=== PATIENT | male | born 1995 | race Caucasian/White ===

== ENCOUNTER 2020-06-30 02:05 | Emergency (ER) | payer SELFPAY ==
[2020-06-30] MEDS ORDERED: Lidocaine 1% (PF) 30 ML VIAL ONE (02:24)
[2020-06-30] MEDS ORDERED: Bupivacaine 0.25% 10 ML VIAL ONE (02:24)
== END 2020-06-30 02:56 | disposition home or self-care (01) ==
LOC: ERS 02:05
DX: K08.89 Other specified disorders of teeth and supporting structures (principal); F17.220 Nicotine dependence, chewing tobacco, uncomplicated
CPT/HCPCS: 64400; J2001; S0020